=== PATIENT | male | born 1945 | race Two or more races ===

== ENCOUNTER 2018-05-06 17:12 | Emergency (ER) | payer MEDICARE ==
[~2018-05-06] VITALS: Ht 175.3 cm; Wt 75.0 kg
[~2018-05-06 17:12] MED LIST: CEPHALEXIN500 MG OR; NO MEDS
[2018-05-06 22:07] LABS: HEMATOCRIT 33.6 % (39.0-50.0); HEMOGLOBIN 11.4 g/dl (14.0-18.0); IMMATURE GRANULOCYTES 1.7 % (0.0-5.0); MEAN CELL VOLUME 95.7 fL CALC (80.0-100.0); MEAN CORPUSCULAR HGB 32.5 pG CALC (26.0-32.0); MEAN CORPUSCULAR HGB CONC 33.9 g/L CALC (32.0-36.0); NEUT# 8.83 thou/uL (1.82-7.42); RED BLOOD COUNT 3.51 mill/uL (4.70-6.10); RED CELL DISTRI WIDTH 13.2 % (11.5-15.5)
[2018-05-06 22:19] LABS: ALBUMIN 3.5 g/dL (3.2-5.0); BILIRUBIN, TOTAL 0.5 mg/dL (0.0-1.4); CREATININE 1.7 mg/dL (0.7-1.3); TOTAL PROTEIN 7.8 g/dL (6.3-8.2)
[2018-05-06 22:25] LABS: POTASSIUM 5.6 mmol/l (3.5-5.1)
[2018-05-06 22:39] LABS: URINE BILIRUBIN - DIPSTICK NEGATIVE (NEGATIVE); URINE BLOOD DIPSTICK NEGATIVE (NEGATIVE); URINE COLOR YELLOW; URINE GLUCOSE - DIPSTICK NEGATIVE (NEGATIVE); URINE KETONE TRACE mg/dL (NEGATIVE); URINE LEUK ESTERASE NEGATIVE (NEGATIVE); URINE NITRITE - DIPSTICK NEGATIVE (Negative); URINE PROTEIN - DIPSTICK NEGATIVE (NEG-TRACE); URINE SPECIFIC GRAVITY 1.025; URINE UROBILINOGEN - DIPSTICK 0.2 E.U./dL (0.2)
[2018-05-06 22:44] LABS: BARBITURATES NEGATIVE (NEGATIVE); COCAINE NEGATIVE (NEGATIVE); METHADONE NEGATIVE (NEGATIVE); OXCYCODONE NEGATIVE (NEGATIVE); TETRAHYDROCANNABIONOL NEGATIVE (NEGATIVE); TRICYLIC ANTIDEPRESSANTS NEGATIVE (NEGATIVE)
[2018-05-07 03:37] VITALS: BP 112/76
== END 2018-05-07 03:50 | disposition short-term general hospital (02) ==
LOC: ED 17:12
PROVIDERS: Emergency Medicine
DX: J18.9 Pneumonia, unspecified organism (principal); N19 Unspecified kidney failure; E87.5 Hyperkalemia; F17.210 Nicotine dependence, cigarettes, uncomplicated

== ENCOUNTER 2018-05-17 23:20 | Emergency (ER) | payer MEDICARE ==
[~2018-05-17] VITALS: Ht 175.3 cm; Wt 50.0 kg
[2018-05-18 00:07] LABS: IMMATURE GRANULOCYTES 2.2 % (0.0-5.0); MEAN CORPUSCULAR HGB 30.6 pG CALC (26.0-32.0); MEAN CORPUSCULAR HGB CONC 29.9 g/L CALC (32.0-36.0); NEUT# 6.64 thou/uL (1.82-7.42); RED BLOOD COUNT 1.44 mill/uL (4.70-6.10); RED CELL DISTRI WIDTH 15.6 % (11.5-15.5)
[2018-05-18 00:22] LABS: HEMATOCRIT 14.9 % (39.0-50.0); HEMOGLOBIN 4.5 g/dl (14.0-18.0); MEAN CELL VOLUME 102.1 fL CALC (80.0-100.0)
[2018-05-18 00:33] LABS: ALKALINE PHOSPHATASE 57 u/l (38-126); BUN 25 mg/dL (8-23); BUN/CREATININE RATIO 28 (12-20 (CALC)); CARBON DIOXIDE 14 mmol/l (22-30); CHLORIDE 109 mmol/l (95-108); CREATININE 0.9 mg/dL (0.7-1.3); GFR > 60 ML/MIN (>=60 (CALC)); GFR FOR AFR.AMER. > 60 ML/MIN (>=60 (CALC)); SGOT/AST 33 u/l (19-48)
[2018-05-18 00:34] LABS: INTERNATIONAL NORMALIZED RATIO 1.1 RATIO (0.7-1.3); PROTHROMBIN TIME 11.1 SECONDS (9.0-12.5)
[2018-05-18 00:38] LABS: ANION GAP 21 (6-22 (CALC)); TOTAL PROTEIN 4.3 g/dL (6.3-8.2)
[2018-05-18 00:39] LABS: POTASSIUM 4.3 mmol/l (3.5-5.1); SODIUM 140 mmol/l (137-146)
[2018-05-18 00:44] VITALS: BP 112/64
[2018-05-18 00:45] LABS: MYOGLOBIN 33 ng/mL (0 - 121)
[2018-05-18] MEDS ORDERED: AZITHROMYCIN500 MG PO (01:00)
[2018-05-18] MEDS ORDERED: PROTONIX40 MG PO (01:01)
[2018-05-18] MEDS ORDERED: ETHAMBUTOL400 MG PO (01:01)
[2018-05-18] MEDS ORDERED: RIFAMPIN300 MG PO (01:02)
[2018-05-18 01:07] VITALS: BP 112/70
[2018-05-18 01:46] VITALS: BP 104/62
== END 2018-05-18 01:30 | disposition short-term general hospital (02) ==
LOC: ED 23:20
PROVIDERS: Emergency Medicine
PROC: 30233N1 Transfusion of Nonautologous Red Blood Cells into Peripheral Vein, Percutaneous Approach (ICD-10-PCS; principal; 2018-05-18)
PROC: 30233N1 Transfusion of Nonautologous Red Blood Cells into Peripheral Vein, Percutaneous Approach (ICD-10-PCS; 2018-05-18)
DX: K92.0 Hematemesis (principal); R06.02 Shortness of breath
CPT/HCPCS: P9016; S0164

== ENCOUNTER → 2018-07-12 | Outpatient (REF) | payer MEDICARE ==
[~2018-07-12] MED LIST changes: +AZITHROMYCIN500 MG PO; +ETHAMBUTOL400 MG PO; +PROTONIX40 MG PO; +RIFAMPIN300 MG PO
[2018-07-12 10:48] LABS: MEAN CELL VOLUME 96.1 fL CALC (80.0-100.0); MEAN CORPUSCULAR HGB 30.7 pG CALC (26.0-32.0); MEAN CORPUSCULAR HGB CONC 31.9 g/L CALC (32.0-36.0); RED BLOOD COUNT 4.4 mill/uL (4.70-6.10); RED CELL DISTRI WIDTH 15.6 % (11.5-15.5)
[2018-07-12 10:50] LABS: HEMATOCRIT 42.3 % (39.0-50.0); HEMOGLOBIN 13.5 g/dl (14.0-18.0)
[2018-07-12 11:17] LABS: BUN 9 mg/dL (8-23); BUN/CREATININE RATIO 9 (12-20 (CALC)); CHLORIDE 111 mmol/l (95-108); GFR > 60 ML/MIN (>=60 (CALC)); GFR FOR AFR.AMER. > 60 ML/MIN (>=60 (CALC)); POTASSIUM 3.8 mmol/l (3.5-5.1); SODIUM 143 mmol/l (137-146)
[2018-07-12 11:28] LABS: ANION GAP 11 (6-22 (CALC)); CARBON DIOXIDE 25 mmol/l (22-30)
== END | disposition home or self-care (01) ==
LOC: LAB 09:38
DX: R91.8 Other nonspecific abnormal finding of lung field (principal)

== ENCOUNTER 2018-11-14 07:23 | Emergency (ER) | payer MEDICARE ==
[~2018-11-14] VITALS: Ht 175.3 cm; Wt 60.0 kg
[2018-11-14] MEDS ORDERED: LISINOP/HCTZ1 TAB PO (08:00)
[2018-11-14 08:02] LABS: HEMATOCRIT 41.3 % (39.0-50.0); HEMOGLOBIN 13.9 g/dl (14.0-18.0); IMMATURE GRANULOCYTES 0.2 % (0.0-5.0); MEAN CELL VOLUME 94.1 fL CALC (80.0-100.0); MEAN CORPUSCULAR HGB 31.7 pG CALC (26.0-32.0); MEAN CORPUSCULAR HGB CONC 33.7 g/L CALC (32.0-36.0); NEUT# 2.87 thou/uL (1.82-7.42); RED BLOOD COUNT 4.39 mill/uL (4.70-6.10); RED CELL DISTRI WIDTH 14.3 % (11.5-15.5)
[2018-11-14 08:21] LABS: ALKALINE PHOSPHATASE 83 u/l (38-126); ANION GAP 11 (6-22 (CALC)); BUN 19 mg/dL (8-23); BUN/CREATININE RATIO 22 (12-20 (CALC)); CARBON DIOXIDE 25 mmol/l (22-30); CHLORIDE 112 mmol/l (95-108); CREATININE 0.9 mg/dL (0.7-1.3); GFR > 60 ML/MIN (>=60 (CALC)); GFR FOR AFR.AMER. > 60 ML/MIN (>=60 (CALC)); POTASSIUM 4.1 mmol/l (3.5-5.1); SGOT/AST 21 u/l (19-48); SODIUM 142 mmol/l (137-146)
[2018-11-14 08:24] LABS: ALBUMIN 3.9 g/dL (3.2-5.0); BILIRUBIN, TOTAL 0.5 mg/dL (0.0-1.4); TOTAL PROTEIN 6.9 g/dL (6.3-8.2)
[2018-11-14 11:40] VITALS: BP 131/90
== END 2018-11-14 11:40 | disposition short-term general hospital (02) ==
LOC: ED 07:23
PROVIDERS: Emergency Medicine
DX: I63.9 Cerebral infarction, unspecified (principal); F17.200 Nicotine dependence, unspecified, uncomplicated; R29.700 NIHSS score 0

== ENCOUNTER 2023-01-24 04:20 | Observation (INO) | payer MEDICARE ==
[2023-01-24] VITALS (32 sets, daily range): BP systolic 101–161; BP diastolic 59–92
[~2023-01-24] VITALS: Ht 175.3 cm; Wt 52.6 kg
[~2023-01-24 04:20] MED LIST changes: +LISINOP/HCTZ1 TAB PO
[2023-01-24 04:55] LABS: BASO% 0.5 % (0-3); EOS% 1.8 % (0-8); HEMATOCRIT 43.6 % (39.0-50.0); HEMOGLOBIN 14.7 g/dl (14.0-18.0); IMMATURE GRANULOCYTES 0.9 % (0.0-5.0); LYMPH% 44.9 % (15-41); MEAN CORPUSCULAR HGB 32.4 pG CALC (26.0-32.0); MEAN CORPUSCULAR HGB CONC 33.7 g/dL CAL (32.0-36.0); MONO% 12.4 % (2-13); NEUT# 2.23 thou/uL (1.82-7.42); NEUT% 39.5 % (42-76); RED BLOOD COUNT 4.54 mill/uL (4.70-6.10); RED CELL DISTRI WIDTH 13.3 % (11.5-15.5)
[2023-01-24 05:08] LABS: ALBUMIN 3.9 g/dL (3.2-5.0); ALKALINE PHOSPHATASE 90 u/l (38-126); ANION GAP 11 (6-22 (CALC)); BILIRUBIN, TOTAL 0.5 mg/dL (0.2-1.3); BUN 13 mg/dL (8-23); BUN/CREATININE RATIO 14 (12-20 (CALC)); CALCULATED LDLCHOLESTEROL 120 mg/dL (62-129 (CALC)); CARBON DIOXIDE 25 mmol/l (22-30); CHLORIDE 105 mmol/l (95-108); CHOLESTEROL HDL RATIO 4.1 (<4.4 (CALC)); GFR FOR AFR.AMER. > 60 ML/MIN (>=60 (CALC)); GFR OTHER RACES > 60 ML/MIN (>=60 (CALC)); HDL CHOLESTEROL 42 mg/dL (39.0-59.0); SGOT/AST 31 u/l (19-48); SODIUM 137 mmol/l (137-146); TOTAL CHOLESTEROL 170 mg/dl (0-199); TOTAL PROTEIN 7.3 g/dL (6.3-8.2); TOTAL TRIGLYCERIDES 43 mg/dl (0-149); VLDL CHOLESTROL 9 mg/dl (0-38 (CALC))
[2023-01-24 05:21] LABS: PROTHROMBIN TIME 9.9 SECONDS (9.0-12.5)
[2023-01-24] MEDS ORDERED: ZESTRIL5 M1 PO (05:38)
[2023-01-24] MEDS ORDERED: ZESTRIL10 M1 PO (12:35)
[2023-01-25 03:51] VITALS: BP 126/77
[2023-01-25 04:21] VITALS: BP 126/77
[2023-01-25 06:11] VITALS: BP 122/81
[2023-01-25 06:16] LABS: HEMATOCRIT 39.6 % (39.0-50.0); HEMOGLOBIN 13.5 g/dl (14.0-18.0); MEAN CELL VOLUME 96.1 fL CALC (80.0-100.0); MEAN CORPUSCULAR HGB 32.8 pG CALC (26.0-32.0); MEAN CORPUSCULAR HGB CONC 34.1 g/dL CAL (32.0-36.0); RED BLOOD COUNT 4.12 mill/uL (4.70-6.10); RED CELL DISTRI WIDTH 13.3 % (11.5-15.5)
[2023-01-25 06:28] LABS: ALKALINE PHOSPHATASE 74 u/l (38-126); ANION GAP 5 (6-22 (CALC)); BILIRUBIN, TOTAL 0.4 mg/dL (0.2-1.3); BUN 13 mg/dL (8-23); BUN/CREATININE RATIO 14 (12-20 (CALC)); CARBON DIOXIDE 26 mmol/l (22-30); CHLORIDE 108 mmol/l (95-108); CREATININE 0.9 mg/dL (0.7-1.3); GFR FOR AFR.AMER. > 60 ML/MIN (>=60 (CALC)); GFR OTHER RACES > 60 ML/MIN (>=60 (CALC)); POTASSIUM 3.9 mmol/l (3.5-5.1); SGOT/AST 26 u/l (19-48); SODIUM 135 mmol/l (137-146)
[2023-01-25 06:52] LABS: ALBUMIN 2.8 g/dL (3.2-5.0); TOTAL PROTEIN 5.6 g/dL (6.3-8.2)
[2023-01-25 09:11] VITALS: BP 120/66
[2023-01-25 10:25] VITALS: BP 120/74
[2023-01-25] MEDS ORDERED: PLAVIX75 MG PO (10:52)
[2023-01-25] MEDS ORDERED: ASPIRIN81 MG PO (10:52)
[2023-01-25] MEDS ORDERED: LIPITOR40 M1 PO (12:15)
== END 2023-01-25 13:45 ==
LOC: ED 04:20 → ED-I 06:30 → ED 06:30 → ICU 06:56 → MS2 18:52
PROVIDERS: Emergency Medicine; ADMIT Student in an Organized Health Care Education/Training Program; ATTEND Student in an Organized Health Care Education/Training Program
DX: G45.9 Transient cerebral ischemic attack, unspecified (principal); I16.1 Hypertensive emergency; I10 Essential (primary) hypertension; I69.398 Other sequelae of cerebral infarction; R20.0 Anesthesia of skin; Z95.818 Presence of other cardiac implants and grafts
CPT/HCPCS: Q9967

== ENCOUNTER 2023-11-05 03:33 | Observation (INO) | payer MEDICARE ==
[~2023-11-05] VITALS: Ht 175.3 cm; Wt 53.8 kg
[2023-11-05] VITALS (15 sets, daily range): BP systolic 100–124; BP diastolic 68–82
[~2023-11-05 03:33] MED LIST changes: +ASPIRIN81 MG PO; +LIPITOR40 M1 PO; +PLAVIX75 MG PO; +ZESTRIL10 M1 PO; +ZESTRIL5 M1 PO
[2023-11-05] MEDS ORDERED: AMLODIPINE BESYL5 MG PO (04:14)
[2023-11-05] MEDS ORDERED: ASPIRIN 81 MG/TAB PO ONE (04:35)
[2023-11-05] MEDS ORDERED: NITROGLYCERIN 2% OINT UD 1 GM/PAK TD ONE (04:35)
[2023-11-05] MEDS ORDERED: MORPHINE SULFATE 4 MG/ML VIAL IV ONE (04:35)
[2023-11-05 06:10] LABS: BASO% 0.4 % (0-3); EOS% 1.7 % (0-8); HEMATOCRIT 43.3 % (39.0-50.0); HEMOGLOBIN 14.4 g/dl (14.0-18.0); IMMATURE GRANULOCYTES 0.3 % (0.0-5.0); LYMPH% 30.3 % (15-41); MEAN CELL VOLUME 95.8 fL CALC (80.0-100.0); MEAN CORPUSCULAR HGB 31.9 pG CALC (26.0-32.0); MEAN CORPUSCULAR HGB CONC 33.3 g/dL CAL (32.0-36.0); MONO% 8.1 % (2-13); NEUT# 4.1 thou/uL (1.82-7.42); NEUT% 59.2 % (42-76); RED BLOOD COUNT 4.52 mill/uL (4.70-6.10); RED CELL DISTRI WIDTH 13.6 % (11.5-15.5)
[2023-11-05 06:35] LABS: PROTHROMBIN TIME 9.9 SECONDS (9.0-12.5)
[2023-11-05 06:37] LABS: ALKALINE PHOSPHATASE 81 u/l (38-126); ANION GAP 6 (6-22 (CALC)); BILIRUBIN, TOTAL 0.4 mg/dL (0.2-1.3); BUN 12 mg/dL (8-23); BUN/CREATININE RATIO 14 (12-20 (CALC)); CARBON DIOXIDE 23 mmol/l (22-30); CHLORIDE 112 mmol/l (95-108); CREATININE 0.9 mg/dL (0.7-1.3); ESTIMATED GFR 88 ML/MIN (>=90 (CALC)); LIPASE 678 u/l (23-300); POTASSIUM 3.9 mmol/l (3.5-5.1); SGOT/AST 36 u/l (19-48); SODIUM 137 mmol/l (137-146); TOTAL PROTEIN 6.5 g/dL (6.3-8.2)
[2023-11-05 06:46] LABS: ALBUMIN 3.5 g/dL (3.2-5.0)
[2023-11-05] MEDS ORDERED: SODIUM CHLORIDE 0.9% 1,000 ML IV PRN (09:10)
[2023-11-05] MEDS ORDERED: ACETAMINOPHEN 325 MG/TAB PO PRN (09:10)
[2023-11-05] MEDS ORDERED: MAGNESIUM HYDROXIDE 30 ML UDC PO PRN (09:10)
[2023-11-05] MEDS ORDERED: Pantoprazole Sodium 40 MG VIAL (Protonix) IV SCH (10:00)
[2023-11-05] MEDS ORDERED: ATORVASTATIN CALCIUM 40 MG/TAB PO SCH (17:00)
[2023-11-05] MEDS ORDERED: ENOXAPARIN SODIUM 40 MG/0.4 ML SYR SC SCH (21:00)
[2023-11-06] VITALS: BP 114/71
[2023-11-06 00:18] VITALS: BP 114/71
[2023-11-06 04:00] VITALS: BP 116/71
[2023-11-06 04:41] VITALS: BP 116/71
[2023-11-06 05:11] LABS: BASO% 0.3 % (0-3); EOS% 1.2 % (0-8); HEMATOCRIT 40.5 % (39.0-50.0); HEMOGLOBIN 13.3 g/dl (14.0-18.0); IMMATURE GRANULOCYTES 0.2 % (0.0-5.0); LYMPH% 42.4 % (15-41); MEAN CELL VOLUME 97.1 fL CALC (80.0-100.0); MEAN CORPUSCULAR HGB 31.9 pG CALC (26.0-32.0); MEAN CORPUSCULAR HGB CONC 32.8 g/dL CAL (32.0-36.0); MONO% 9.5 % (2-13); NEUT# 3.06 thou/uL (1.82-7.42); NEUT% 46.4 % (42-76); RED BLOOD COUNT 4.17 mill/uL (4.70-6.10); RED CELL DISTRI WIDTH 13.8 % (11.5-15.5)
[2023-11-06 05:37] LABS: BILIRUBIN, TOTAL 0.4 mg/dL (0.2-1.3); CHOLESTEROL HDL RATIO 2.3 (<4.4 (CALC)); CREATININE 0.9 mg/dL (0.7-1.3); MAGNESIUM 1.5 mg/dL (1.6-2.3); TOTAL PROTEIN 5.3 g/dL (6.3-8.2)
[2023-11-06 05:45] LABS: ALBUMIN 2.7 g/dL (3.2-5.0)
[2023-11-06 07:07] VITALS: BP 113/77
[2023-11-06] MEDS ORDERED: ASPIRIN 81 LOW81 MG PO (10:13)
[2023-11-06 11:03] VITALS: BP 116/60
== END 2023-11-06 13:10 | disposition home or self-care (01) ==
LOC: ED 03:33 → ED-I 04:42 → ED 04:42 → ED-I 08:40 → ED 09:04 → MS2 09:05
PROVIDERS: Internal Medicine; Nurse Practitioner Family; ADMIT Internal Medicine; ATTEND Internal Medicine
DX: M50.30 Other cervical disc degeneration, unspecified cervical region (principal); R42 Dizziness and giddiness; R07.89 Other chest pain; I10 Essential (primary) hypertension; E78.5 Hyperlipidemia, unspecified; I77.810 Thoracic aortic ectasia; J44.9 Chronic obstructive pulmonary disease, unspecified; N40.0 Benign prostatic hyperplasia without lower urinary tract symptoms; K76.0 Fatty (change of) liver, not elsewhere classified; N28.1 Cyst of kidney, acquired; F17.210 Nicotine dependence, cigarettes, uncomplicated; Z86.73 Personal history of transient ischemic attack (TIA), and cerebral infarction without residual deficits
CPT/HCPCS: J1650; Q9967; S0164